=== PATIENT | female | born 1980 | race Caucasian/White ===

== ENCOUNTER 2025-02-17 06:28 | Day surgery (SDC) | payer OTHER ==
[2025-02-15 16:06] VITALS: BMI 40.2
[2025-02-17 08:34] VITALS: TEMP 97.6
[2025-02-17 08:35] VITALS: RESP 18
[2025-02-17 09:27] VITALS: BP 107/66; PULSE 66
== END 2025-02-17 09:10 | disposition home or self-care (01) ==
LOC: JASU-ENDO 06:28
PROVIDERS: ATTEND Student in an Organized Health Care Education/Training Program
PROC: 0DB78ZX Excision of Stomach, Pylorus, Via Natural or Artificial Opening Endoscopic, Diagnostic (ICD-10-PCS; 2025-02-17)
PROC: 0DB68ZX Excision of Stomach, Via Natural or Artificial Opening Endoscopic, Diagnostic (ICD-10-PCS; 2025-02-17)
PROC: 0DB98ZX Excision of Duodenum, Via Natural or Artificial Opening Endoscopic, Diagnostic (ICD-10-PCS; principal; 2025-02-17 08:00)
DX: K29.70 Gastritis, unspecified, without bleeding (principal); B96.81 Helicobacter pylori [H. pylori] as the cause of diseases classified elsewhere
CPT/HCPCS: 81025; 82962; 88305-TC; 88341-TC; 88342-TC